=== PATIENT | female | born 1955 | race Caucasian/White ===

== ENCOUNTER 2022-05-01 16:23 | Emergency (ER) | payer MEDICARE ==
--- NOTE | 2022-05-01 17:00 | XRAY ---
Indication: Palpitations. Comparison: None Portable chest demonstrates normal heart and lungs with incidental right apical calcified granuloma. Bony thorax intact with mild osteopenia and degenerative changes. Impression: Nonacute chest with chronic features.
[2022-05-01 17:08] LABS: Absolute Neutrophil Ct (ANC) 5.99 x10^3/uL (1.4-6.9); Basophil (Absolute #) 0.03 x10^3/uL (0-0.4); Eosinophil (Absolute #) 0.26 x10^3/uL (0-0.5); Hematocrit 37.5 % (35-47); Hemoglobin 13.2 g/dL (12.0-16.0); Lymphocyte (Absolute #) 1.88 x10^3/uL (1.0-4.6); Lymphocytes % 21.7 % (24.0-44.0); Mean Cell Volume 89.3 fL (78-100); Mean Corpuscular Hemoglobin 31.4 pg (26-32); Mean Corpuscular Hgb Concent. 35.2 g/dL (32-36); Mean Platelet Volume 9.4 fL (7.5-11.0); Monocyte (Absolute #) 0.48 x10^3/uL (0.0-1.3); Monocytes % 5.5 % (0.0-12.0); Neutrophil % 69.2 % (36.0-66.0); Platelet Count 271 x10^3/uL (150-450); Red Cell Distribution Width 11.4 % (11.5-14.0); White Blood Count 8.7 x10^3/uL (4.0-10.5)
[2022-05-01 17:32] LABS: ALBUMIN 4.4 g/dL (3.5-5.0); ALKALINE PHOSPHATASE 76 U/L (38-126); BLOOD UREA NITROGEN 27 mg/dL (7-17); CHLORIDE 93 mmol/L (98-107); Calcium 8.9 mg/dL (8.4-10.2); Carbon Dioxide 33 mmol/L (22-30); Creatinine 1 0.92 mg/dL (0.52-1.04); EST GLOMERULAR FILTRATION RATE > 60.0 ML/MIN; Glucose 85 mg/dL (74-106); NT PRO BNP 189 pg/mL (0-900); Potassium 3.3 mmol/L (3.5-5.1); SGOT/AST 27 U/L (14-36); SGPT/ALT 26 U/L (0-35); SODIUM 131 mmol/L (137-145); Total Protein 7.3 g/dL (6.3-8.2)
[2022-05-01] MEDS ORDERED: Sodium Chloride 0.9% 1000 ML 1,000 ML IV STA (18:14)
[2022-05-01] MEDS ORDERED: Klor Con PO ONE ×2 (18:15→18:25)
--- NOTE | 2022-05-01 18:24 | ERPHSYRPT ---
- History of Present Illness Time Seen by Provider: 05/01/22 16:40 Source: patient Exam Limitations: no limitations Patient Subjective Stated Complaint: Pt has been having palpitations off and on but today she has had them all day and she is concerned and so she came in to get an EKG Triage Nursing Assessment: Pt brought to the ER by her , hypertensive, denies pain, doesn't appear to be in any distress, no edema, pulses normal, skin n/w/d Physician History: Patient 66-year-old female presents to our ED for evaluation of intermittent palpitations. Heart palpitations have been intermittent throughout the day. No associated dizziness or near syncopal episodes. No chest pain no shortness of breath. No nausea vomiting or diaphoresis. Patient has a history of hypokalemia. Patient does not have a ongoing prescription for potassium. No associated nausea or vomiting. No diarrhea. No rash. Patient otherwise feels well. She voices no other complaints or concerns at this time. Portions of this note were created with voice recognition technology. There may be grammatical, spelling, punctuation or sound alike errors Timing/Duration: today, intermittent Severity: moderate Modifying Factors: Improves With: nothing Associated Symptoms: denies symptoms Allergies/Adverse Reactions: Sulfa (Sulfonamide Antibiotics) Allergy (Verified 05/01/22 16:46) Home Medications: Atorvastatin Calcium 20 mg PO DAILY 05/01/22 [History] Celecoxib [Celebrex] 200 mg PO DAILY 05/01/22 [History] Tramadol HCl 50 mg [Ultram 50 mg] 50 mg PO Q6H PRN 05/01/22 [History] Travel Risk - International Travel Have you traveled outside of the country in past 3 weeks: No - Coronavirus Screening Are you exhibiting any of the following symptoms?: No - Vaccine Status Have you recieved a Covid-19 vaccination: Yes Sand Blaster: Moderna - Vaccination Dates Date of 2cond Vaccination (if applicable): 2020 - Review of Systems Constitutional: No Symptoms, No Fever, No Chills Eyes: No Symptoms Ears, Nose, & Throat: No Symptoms Respiratory: No Symptoms, No Cough, No Dyspnea Cardiac: No Symptoms, No Chest Pain, No Edema, No Syncope Abdominal/Gastrointestinal: No Symptoms, No Abdominal Pain, No Nausea, No Vomiting, No Diarrhea Genitourinary Symptoms: No Symptoms, No Dysuria Musculoskeletal: No Symptoms, No Back Pain, No Neck Pain Skin: No Symptoms, No Rash Neurological: No Symptoms, No Dizziness, No Focal Weakness, No Sensory Changes Psychological: No Symptoms Endocrine: No Symptoms Hematologic/Lymphatic: No Symptoms Immunological/Allergic: No Symptoms All Other Systems: Reviewed and Negative - Past Medical History Pertinent Past Medical History: Yes Neurological History: No Pertinent History Cardiac History: High Cholesterol Respiratory History: No Pertinent History Endocrine Medical History: No Pertinent History Musculoskeletal History: Osteoarthritis - Past Surgical History Past Surgical History: Yes Cardiac: Cardiac Catheterization Gastrointestinal: Appendectomy Other Surgical History: bunions on both feet, rt carpal tunnel, rt rotator cuff - Social History Smoking Status: Never smoker Exposure to second hand smoke: No Drug Use: none Patient Lives Alone: No - Nursing Vital Signs Nursing Vital Signs: Initial Vital Signs Temperature 97.4 F 05/01/22 16:28 Pulse Rate 66 05/01/22 16:28 Blood Pressure 183/86 05/01/22 16:28 O2 Sat by Pulse Oximetry 99 05/01/22 16:28 Pain Scale Pain Intensity 0 - Physical Exam General Appearance: no apparent distress, alert Eye Exam: PERRL/EOMI, eyes nml inspection Ears, Nose, Throat Exam: normal ENT inspection, TMs normal, pharynx normal, moist mucous membranes Neck Exam: normal inspection, non-tender, supple, full range of motion Respiratory Exam: normal breath sounds, lungs clear, airway intact, No respiratory distress Cardiovascular Exam: regular rate/rhythm, normal heart sounds, normal peripheral pulses Gastrointestinal/Abdomen Exam: soft, normal bowel sounds, No tenderness, No mass Back Exam: normal inspection, normal range of motion, No CVA tenderness, No v ertebral tenderness Extremity Exam: normal inspection, normal range of motion, pelvis stable Neurologic Exam: alert, oriented x 3, cooperative, normal mood/affect, nml cerebellar function, nml station & gait, sensation nml, No motor deficits Skin Exam: normal color, warm, dry, No rash Lymphatic Exam: No adenopathy SpO2 Interpretation: normal SpO2: 98 O2 Delivery: Room Air - Course Nursing assessment & vital signs reviewed: Yes - Radiology Exams Chest X-ray Interpretation: Teleradiologist Report (Normal heart lungs. Lung granuloma. Osteopenia degenerative changes) Ordered Tests: Active Orders 24 hr Category Date Time Status Field Technical Support Consultant STAT Care 05/01/22 16:40 Active EKG-ER Only STAT Care 05/01/22 16:39 Active IV Insertion STAT Care 05/01/22 16:39 Active Pulse Oximetry (ED) STAT Care 05/01/22 16:39 Active CHEST 1 VIEW (PORTABLE) Stat Exams 05/01/22 16:40 Completed CBC W DIFF Stat Lab 05/01/22 17:00 Completed CMP Stat Lab 05/01/22 17:00 Completed NT PRO BNP Stat Lab 05/01/22 17:00 Completed TROPONIN Q4H Lab 05/01/22 17:00 Completed TROPONIN Q4H Lab 05/01/22 19:00 Completed TROPONIN Q4H Lab 05/02/22 00:45 Ordered TSH [TSH, 3RD Generation] Stat Lab 05/01/22 17:06 Completed UA W/RFX CULTURE Stat Lab 05/01/22 18:14 Completed Holter Monitor ONCE RT 05/01/22 18:37 Completed Medication Summary Generic Name Dose Route Start Last Admin Trade Name Freq PRN Reason Stop Dose Admin Magnesium Sulfate/Dextrose 100 mls @ 100 mls/hr 05/01/22 18:30 05/01/22 18:58 Magnesium 1 Gm / 100 Ml D5w IV 05/01/22 20:29 100 mls/hr Q1H JAY JAY Administration Discontinued Medications Generic Name Dose Route Start Last Admin Trade Name Freq PRN Reason Stop Dose Admin Sodium Chloride 1,000 mls @ 999 mls/hr 05/01/22 18:14 05/01/22 19:31 Sodium Chloride 0.9% 1000 Ml IV 05/01/22 19:14 Infused .Q1H1M STA Infusion Sodium Chloride Confirm 05/01/22 18:25 Sodium Chloride 0.9% 1000 Ml Administered 05/01/22 18:26 Dose 1,000 mls @ ud .ROUTE .STK-MED ONE Potassium Chloride 40 meq 05/01/22 18:15 05/01/22 18:30 Potassium Chloride Tab 10 Meq Tab PO 05/01/22 18:16 40 meq STAT ONE Administration Potassium Chloride Confirm 05/01/22 18:25 Potassium Chloride Tab 10 Meq Tab Administered 05/01/22 18:26 Dose 40 meq PO .STK-MED ONE Lab/Rad Data: Laboratory Result Diagrams 05/01/22 17:00 05/01/22 17:00 Laboratory Results 05/01/22 05/01/22 05/01/22 Range/Units 19:00 18:14 17:06 WBC (4.0-10.5) x10^3/uL RBC (4.1-5.4) x10^6/uL Hgb (12.0-16.0) g/dL Hct (35-47) % MCV (78-100) fL MCH (26-32) pg MCHC (32-36) g/dL RDW (11.5-14.0) % Plt Count (150-450) x10^3/uL MPV (7.5-11.0) fL Gran % (36.0-66.0) % Immature Gran % (Auto) (0.00-0.4) % Nucleat RBC Rel Count (0.00-0.1) % Eos # (Auto) (0-0.5) x10^3/uL Immature Gran # (Auto) (0.00-0.03) x10^3u/L Absolute Lymphs (auto) (1.0-4.6) x10^3/uL Absolute Monos (auto) (0.0-1.3) x10^3/uL Absolute Nucleated RBC (0.00-0.01) x10^3u/L Lymphocytes % (24.0-44.0) % Monocytes % (0.0-12.0) % Eosinophils % (0.00-5.0) % Basophils % (0.0-0.4) % Absolute Granulocytes (1.4-6.9) x10^3/uL Basophils # (0-0.4) x10^3/uL Sodium (137-145) mmol/L Potassium (3.5-5.1) mmol/L Chloride (98-107) mmol/L Carbon Dioxide (22-30) mmol/L Anion Gap (5-15) MEQ/L BUN (7-17) mg/dL Creatinine (0.52-1.04) mg/dL Estimated GFR ML/MIN Glucose (74-106) mg/dL Calcium (8.4-10.2) mg/dL Total Bilirubin (0.2-1.3) mg/dL AST (14-36) U/L ALT (0-35) U/L Alkaline Phosphatase (38-126) U/L Troponin I < 0.012 (0.000-0.034) ng/mL NT-Pro-B Natriuret Pep (0-900) pg/mL Serum Total Protein (6.3-8.2) g/dL Albumin (3.5-5.0) g/dL TSH 3rd Generation 2.140 (0.47-4.68) mIU/L Urinalys Dipstick Clnc MAIN LAB Urine Color YELLOW (YELLOW) Urine Appearance CLEAR (CLEAR) Urine pH 6.0 (5-6) Ur Specific [place] 1.015 (1.005-1.025) POC Urine Protein Conf NEGATIVE (Negative) Urine Ketones NEGATIVE (NEGATIVE) Urine Nitrite NEGATIVE (NEGATIVE) Urine Bilirubin NEGATIVE (NEGATIVE) Urine Urobilinogen 0.2 (0-1) mg/dL Urine Leukocytes TRACE (NEGATIVE) Urine WBC (Auto) 0-2 (0-5) /HPF Urine RBC (Auto) NONE (0-2) /HPF U Epithel Cells (Auto) Not Reportable Urine Bacteria (Auto) Not Reportable Urine RBC NEGATIVE (0-5) [place]/ul Ur Culture Indicated? NO Urine Glucose NEGATIVE (NEGATIVE) mg/dL 05/01/22 05/01/22 05/01/22 Range/Units 17:00 17:00 17:00 WBC 8.7 (4.0-10.5) x10^3/uL RBC 4.20 (4.1-5.4) x10^6/uL Hgb 13.2 (12.0-16.0) g/dL Hct 37.5 (35-47) % MCV 89.3 (78-100) fL MCH 31.4 (26-32) pg MCHC 35.2 (32-36) g/dL RDW 11.4 L (11.5-14.0) % Plt Count 271 (150-450) x10^3/uL MPV 9.4 (7.5-11.0) fL Gran % 69.2 H (36.0-66.0) % Immature Gran % (Auto) 0.3 (0.00-0.4) % Nucleat RBC Rel Count 0.0 (0.00-0.1) % Eos # (Auto) 0.26 (0-0.5) x10^3/uL Immature Gran # (Auto) 0.03 (0.00-0.03) x10^3u/L Absolute Lymphs (auto) 1.88 (1.0-4.6) x10^3/uL Absolute Monos (auto) 0.48 (0.0-1.3) x10^3/uL Absolute Nucleated RBC 0.00 (0.00-0.01) x10^3u/L Lymphocytes % 21.7 L (24.0-44.0) % Monocytes % 5.5 (0.0-12.0) % Eosinophils % 3.0 (0.00-5.0) % Basophils % 0.3 (0.0-0.4) % Absolute Granulocytes 5.99 (1.4-6.9) x10^3/uL Basophils # 0.03 (0-0.4) x10^3/uL Sodium 131 L (137-145) mmol/L Potassium 3.3 L (3.5-5.1) mmol/L Chloride 93 L (98-107) mmol/L Carbon Dioxide 33 H (22-30) mmol/L Anion Gap 8.0 (5-15) MEQ/L BUN 27 H (7-17) mg/dL Creatinine 0.92 (0.52-1.04) mg/dL Estimated GFR > 60.0 ML/MIN Glucose 85 (74-106) mg/dL Calcium 8.9 (8.4-10.2) mg/dL Total Bilirubin 0.80 (0.2-1.3) mg/dL AST 27 (14-36) U/L ALT 26 (0-35) U/L Alkaline Phosphatase 76 (38-126) U/L Troponin I < 0.012 (0.000-0.034) ng/mL NT-Pro-B Natriuret Pep 189 (0-900) pg/mL Serum Total Protein 7.3 (6.3-8.2) g/dL Albumin 4.4 (3.5-5.0) g/dL TSH 3rd Generation (0.47-4.68) mIU/L Urinalys Dipstick Clnc Urine Color (YELLOW) Urine Appearance (CLEAR) Urine pH (5-6) Ur Specific [place] (1.005-1.025) POC Urine Protein Conf (Negative) Urine Ketones (NEGATIVE) Urine Nitrite (NEGATIVE) Urine Bilirubin (NEGATIVE) Urine Urobilinogen (0-1) mg/dL Urine Leukocytes (NEGATIVE) Urine WBC (Auto) (0-5) /HPF Urine RBC (Auto) (0-2) /HPF U Epithel Cells (Auto) Urine Bacteria (Auto) Urine RBC (0-5) [place]/ul Ur Culture Indicated? Urine Glucose (NEGATIVE) mg/dL - Progress Progress: improved Progress Note: Patient reassessed. She feels well. Patient admits to history of hypokalemia. Hypokalemia observed on today's work-up. Patient's potassium replaced orally. Patient also received 2 g of magnesium. For hyponatremia patient received normal saline. No recurrence of heart palpitations during our ED. A Holter monitor was placed. Patient agrees to follow-up with her primary care doctor within 48 hours for evaluation. Portions of this note were created with voice recognition technology. There may be grammatical, spelling, punctuation or sound alike errors 05/01/22 19:33 Counseled pt/family regarding: lab results, diagnosis, need for follow-up, rad results - Departure Departure Disposition: Home Clinical Impression: Heart palpitations, Hypokalemia, Dehydration, Hyponatremia, Lung granuloma Condition: Stable Critical Care Time: No Referrals: DUDLEY PEDRAZA MD [Primary Care Provider] - Follow up/PCP as directed Additional Instructions: Discharge/Care Plan MAYRA SOLER was seen on 05/01/22 in the Emergency Room. The patient was counseled regarding Diagnosis,Lab results, Imaging studies, need for follow up and when to return to the Emergency Room. Prescriptions given: Discharge Note I have spoken with the patient and/or caregivers. I have explained the patient's condition, diagnosis and treatment plan based on the information available to me at this time. I have answered the patient's and/or caregiver's questions and add ressed any concerns. The patient and/or caregivers have as good understanding of the patient's diagnosis, condition and treatment plan as can be expected at this point. The vital signs have been stable. The patient's condition is stable and appropriate for discharge from the emergency department. The patient will pursue further outpatient evaluation with the primary care physician or other designated or consulting physician as outlined in the discharge instructions. The patient and/or caregivers are agreeable to this plan of care and follow-up instructions have been explained in detail. The patient and/or caregivers have received these instruction. The patient/and or caregivers are aware that any significant change in condition or worsening of symptoms should prompt an immediate return to this or the closest emergency department or call 911.
[2022-05-01] MEDS ORDERED: Sodium Chloride 0.9% 1000 ML 1,000 ML ONE (18:25)
[2022-05-01] MEDS ORDERED: Magnesium 1 Gm / 100 Ml D5W*** 100 ML IV ONE ×2 (18:25→18:57)
[2022-05-01] MEDS: Magnesium 1 Gm / 100 Ml D5W*** 100 ML IV SCH ×2 (18:30→18:58)
[2022-05-01 19:04] LABS: WBC 0-2 /HPF (0-5)
[2022-05-01 19:05] LABS: Appearance CLEAR (CLEAR); Bilirubin NEGATIVE (NEGATIVE); Dipstick done @ ? MAIN LAB; Glucose NEGATIVE (NEGATIVE); Ketones NEGATIVE (NEGATIVE); Nitrite NEGATIVE (NEGATIVE); Protein,Urine Dip NEGATIVE (Negative); RBC NEGATIVE Ery/ul (0-5); Specific Gravity 1.015 (1.005-1.025); Urobilinogen 0.2 mg/dL (0-1)
[2022-05-01 19:06] LABS: Urine Cultured Indicated? NO
[2022-05-01 19:38] VITALS: BP 174/86; PULSE 68; O2SAT 97
== END 2022-05-01 19:42 | disposition home or self-care (01) ==
LOC: ED 16:23
DX: R00.2 Palpitations (principal); E87.6 Hypokalemia; E86.0 Dehydration; E87.1 Hypo-osmolality and hyponatremia; J84.10 Pulmonary fibrosis, unspecified; E78.5 Hyperlipidemia, unspecified; Z79.891 Long term (current) use of opiate analgesic; Z79.899 Other long term (current) drug therapy
CPT/HCPCS: 36000; 36415; 71045; 80053; 81015; 83880; 84443; 84484; 85025; 93005; 93041; 93225; 94760; 96360; 99284; J3475; A9270-GY

== ENCOUNTER 2022-07-18 13:38 | Day surgery (SDC) | payer MEDICARE ==
[2022-07-18] MEDS ORDERED: Depo-Medrol 40 MG/ML IM ONE (13:39)
[2022-07-18] MEDS ORDERED: Sodium Chloride 0.9(Preservative Free) 10 ML IJ ONE (13:39)
[2022-07-18] MEDS ORDERED: LIDOCAINE HCL 1% 50 MG/5 ML VL PF IJ ONE (13:39)
[2022-07-18] MEDS ORDERED: DIPRIVAN 200 MG/20 ML IV ONE (15:22)
--- NOTE | 2022-07-18 16:57 | XRAY ---
Indication: Left L4-S1 transforaminal ERIKA. Intraoperative fluoroscopy provided for 29 seconds. 6 digital spot images submitted for interpretation demonstrates posterior needle tips projecting over the expected left L4 and L5 nerve roots. Small amount of contrast injected for needle tip placement. Correlate with intraoperative findings/report.
[2022-07-18] MEDS ORDERED: Lactated Ringers 1,000 ML IV ONE (17:09)
--- NOTE | 2022-07-18 17:13 | XRAY ---
29 seconds of fluoroscopy was used in surgery for a left L4-S1 transforaminal ERIKA.
== END 2022-07-18 15:50 | disposition home or self-care (01) ==
LOC: SDC-PAIN 13:38
PROVIDERS: ATTEND Psychiatry & Neurology Pain Medicine
DX: M54.16 Radiculopathy, lumbar region (principal); M47.816 Spondylosis without myelopathy or radiculopathy, lumbar region; Z79.899 Other long term (current) drug therapy
CPT/HCPCS: 64483; 64484; 72100; 77003; J1030; J2001; J2704; Q9966

== ENCOUNTER 2022-10-17 12:56 | Day surgery (SDC) | payer MEDICARE ==
[2022-10-17] MEDS ORDERED: LIDOCAINE HCL 2% 100 MG/5 ML IJ ONE (12:57)
[2022-10-17] MEDS ORDERED: Depo-Medrol 40 MG/ML IM ONE (12:57)
[2022-10-17] MEDS ORDERED: DIPRIVAN 200 MG/20 ML IV ONE (14:31)
--- NOTE | 2022-10-17 15:09 | XRAY ---
Indication: Bilateral L4-S1 MBB. Intraoperative fluoroscopy provided for 12 seconds. Single digital spot image submitted for interpretation demonstrates posterior needle tips projecting over the expected left and right L4-S1 nerve roots. Correlate with intraoperative findings/report.
[2022-10-17] MEDS ORDERED: Lactated Ringers 1,000 ML IV ONE (15:19)
--- NOTE | 2022-10-17 17:14 | XRAY ---
12 seconds of fluoroscopy was used in surgery for a bilateral L4-S1 MBB.
== END 2022-10-17 15:00 | disposition home or self-care (01) ==
LOC: SDC-PAIN 12:56
PROVIDERS: ATTEND Psychiatry & Neurology Pain Medicine
DX: M47.816 Spondylosis without myelopathy or radiculopathy, lumbar region (principal); Z79.899 Other long term (current) drug therapy
CPT/HCPCS: 64493; 64494; 72020; 77002; J1030; J2704

== ENCOUNTER 2022-11-28 11:45 | Day surgery (SDC) | payer MEDICARE ==
[2022-11-28] MEDS ORDERED: BUPIVACAINE 0.5% VIAL IJ ONE (11:46)
[2022-11-28] MEDS ORDERED: Depo-Medrol 40 MG/ML IM ONE (11:46)
[2022-11-28] MEDS ORDERED: DIPRIVAN 200 MG/20 ML IV ONE (12:45)
[2022-11-28] MEDS ORDERED: Lactated Ringers 1,000 ML IV ONE (14:46)
--- NOTE | 2022-11-28 18:10 | XRAY ---
Indication: Bilateral L4-S1 MBB. Intraoperative fluoroscopy provided for 8 seconds. Single digital spot image submitted for interpretation demonstrates posterior needle tips projecting over the expected left and right L4-S1 nerve roots. Correlate with intraoperative findings/report.
--- NOTE | 2022-11-28 19:01 | XRAY ---
8 seconds of fluoroscopy was used in surgery for a bilateral L4-S1 MBB.
== END 2022-11-28 13:10 | disposition home or self-care (01) ==
LOC: SDC-PAIN 11:45
PROVIDERS: ATTEND Psychiatry & Neurology Pain Medicine
DX: M47.816 Spondylosis without myelopathy or radiculopathy, lumbar region (principal); Z79.899 Other long term (current) drug therapy
CPT/HCPCS: 64493; 64494; 72020; 77002; J1030; J2704

== ENCOUNTER 2023-01-30 09:52 | Day surgery (SDC) | payer MEDICARE ==
[2023-01-30] MEDS ORDERED: LIDOCAINE HCL 1% 50 MG/5 ML VL PF IJ ONE (09:53)
[2023-01-30] MEDS ORDERED: BUPIVACAINE 0.5% VIAL IJ ONE (09:53)
[2023-01-30] MEDS ORDERED: Depo-Medrol 40 MG/ML IM ONE (09:53)
[2023-01-30] MEDS ORDERED: DIPRIVAN 200 MG/20 ML IV ONE (11:25)
[2023-01-30] MEDS ORDERED: Lactated Ringers 1,000 ML IV ONE (11:53)
--- NOTE | 2023-01-30 13:47 | XRAY ---
Indication: Right L4-S1 RFA. Intraoperative fluoroscopy provided for 19 seconds. 5 digital spot image submitted for interpretation demonstrates posterior needle tips projecting over the expected right L4-S1 nerve roots. Correlate with intraoperative findings/report.
--- NOTE | 2023-01-30 15:14 | XRAY ---
19 seconds of fluoroscopy was used in surgery for a right L4-S1 RFA.
== END 2023-01-30 11:55 | disposition home or self-care (01) ==
LOC: SDC-PAIN 09:52
PROVIDERS: ATTEND Psychiatry & Neurology Pain Medicine
DX: M47.816 Spondylosis without myelopathy or radiculopathy, lumbar region (principal); Z79.899 Other long term (current) drug therapy
CPT/HCPCS: 64635; 64636; 72100; 77002; J1030; J2001; J2704

== ENCOUNTER 2023-02-06 09:58 | Day surgery (SDC) | payer MEDICARE ==
[2023-02-06] MEDS ORDERED: BUPIVACAINE 0.5% VIAL IJ ONE (09:59)
[2023-02-06] MEDS ORDERED: Depo-Medrol 40 MG/ML IM ONE (09:59)
[2023-02-06] MEDS ORDERED: LIDOCAINE HCL 1% 50 MG/5 ML VL PF IJ ONE (09:59)
[2023-02-06] MEDS ORDERED: DIPRIVAN 200 MG/20 ML IV ONE ×2 (11:42→11:52)
[2023-02-06] MEDS ORDERED: Lactated Ringers 1,000 ML IV ONE (13:11)
--- NOTE | 2023-02-06 18:39 | XRAY ---
Indication: Left L4-S1 RFA. Intraoperative fluoroscopy provided for 36 seconds. 6 digital spot image submitted for interpretation demonstrates posterior needle tip projecting over the expected left L4-S1 nerve roots. Correlate with intraoperative findings/report.
--- NOTE | 2023-02-06 18:56 | XRAY ---
36 seconds of fluoroscopy was used in surgery for a left L4-S1 RFA.
== END 2023-02-06 12:15 | disposition home or self-care (01) ==
LOC: SDC-PAIN 09:58
PROVIDERS: ATTEND Psychiatry & Neurology Pain Medicine
DX: M47.816 Spondylosis without myelopathy or radiculopathy, lumbar region (principal); Z79.899 Other long term (current) drug therapy
CPT/HCPCS: 64635; 64636; 72100; 77002; J1030; J2001; J2704

== ENCOUNTER 2023-03-13 12:16 | Day surgery (SDC) | payer MEDICARE ==
[2023-03-13] MEDS ORDERED: XYLOCAINE 1% HCL 20 ML MDV IJ ONE (12:17)
[2023-03-13] MEDS ORDERED: Sodium Chloride 0.9(Preservative Free) 10 ML IJ ONE (12:17)
[2023-03-13] MEDS ORDERED: Depo-Medrol 40 MG/ML IM ONE (12:17)
[2023-03-13] MEDS ORDERED: DIPRIVAN 200 MG/20 ML IV ONE ×2 (14:49→15:00)
[2023-03-13] MEDS ORDERED: Lactated Ringers 1,000 ML IV ONE (15:05)
--- NOTE | 2023-03-13 16:39 | XRAY ---
Indication: Thoracic ERIKA. Intraoperative fluoroscopy provided for 19 seconds. 2 digital spot images submitted for interpretation demonstrates posterior needle tip projecting lower thoracic, presumed T9-T10 interspace. Small amount of contrast injected for needle tip placement. Correlate with intraoperative findings/report.
--- NOTE | 2023-03-14 09:53 | XRAY ---
19 seconds of fluoroscopy was used in surgery for a thoracic ERIKA.
== END 2023-03-13 15:21 | disposition home or self-care (01) ==
LOC: SDC-PAIN 12:16
PROVIDERS: ATTEND Psychiatry & Neurology Pain Medicine
DX: M54.14 Radiculopathy, thoracic region (principal); Z79.899 Other long term (current) drug therapy
CPT/HCPCS: 62321; 72072; 77003; J1030; J2704; Q9966

== ENCOUNTER 2023-10-30 11:43 | Day surgery (SDC) | payer MEDICARE ==
[2023-10-30] MEDS ORDERED: Depo-Medrol 40 MG/ML IM ONE (11:44)
[2023-10-30] MEDS ORDERED: LIDOCAINE HCL 1% 50 MG/5 ML VL PF IJ ONE (11:44)
[2023-10-30] MEDS ORDERED: Sodium Chloride 0.9(Preservative Free) 10 ML IJ ONE (11:44)
[2023-10-30] MEDS ORDERED: Lactated Ringers 1,000 ML IV ONE (12:26)
[2023-10-30] MEDS ORDERED: DIPRIVAN 200 MG/20 ML IV ONE (13:03)
--- NOTE | 2023-10-30 13:40 | XRAY ---
Indication: Thoracic ERIKA. Intraoperative fluoroscopy provided for 16 seconds. 2 digital spot images submitted for interpretation demonstrates posterior needle tip projecting posterior to the last rib-bearing thoracic segment. Small amount of contrast injected for needle tip placement. Correlate with intraoperative findings/report.
--- NOTE | 2023-10-30 14:11 | XRAY ---
16 seconds of fluoroscopy was used in surgery for a thoracic ERIKA.
== END 2023-10-30 13:35 | disposition home or self-care (01) ==
LOC: SDC-PAIN 11:43
PROVIDERS: ATTEND Psychiatry & Neurology Pain Medicine
DX: M54.14 Radiculopathy, thoracic region (principal)
CPT/HCPCS: 62321; 72072; 77003; J1010; J2001; J2704; Q9966; J1030